=== PATIENT | female | born 1945 | race Caucasian/White ===

== ENCOUNTER 2020-05-22 07:30 | Inpatient (IN) ==
[~2020-05-22 07:30] MED LIST: Buffered Lidocaine 1% SYRIN 1 ml INTRADERM ONE; Lactated Ringers 1000 ml BAG 1,000 ML IV SCH
[2020-05-22] MEDS ORDERED: Buffered Lidocaine 1% SYRIN 1 ml INTRADERM ONE (10:24)
[2020-05-22] MEDS ORDERED: ceFAZolin 2 GM PREMIX 2 GM/50 ML BAG ONE (10:24)
[2020-05-22] MEDS ORDERED: Midazolam 2 mg/2 ml VIAL 1 mg/ml 2 ml VIAL (2 mg) ONE (11:26)
[2020-05-22] MEDS ORDERED: fentaNYL 100 mcg/2 ml 50 MCG/ML VIAL ONE ×3 (11:26→18:27)
[2020-05-22] MEDS ORDERED: ROPIVACAINE 5 MG/ML 30 ML BTL (0.5%) ONE ×2 (11:29→13:04)
[2020-05-22] MEDS ORDERED: Dexamethasone IV 4 MG/ML VIAL 1 ml VIAL ONE (11:29)
[2020-05-22] MEDS ORDERED: EPHEDrine (Pressors) 50 MG/ML VIAL ONE (14:27)
[2020-05-22] MEDS ORDERED: Phenylephrine 40 mcg/mL 10mL (400mcg) SYRINGE ONE (14:38)
[2020-05-22] MEDS ORDERED: Naloxone 0.4 mg VIAL 0.4 mg/ml 1 ml VIAL IV PRN (15:03)
[2020-05-22] MEDS ORDERED: Propofol 10 MG/ML 20 ML BTL ONE ×3 (15:33→17:18)
[2020-05-22] MEDS ORDERED: Magnesium Hydroxide LIQ 30 ML UDC PO PRN (17:54)
[2020-05-22] MEDS ORDERED: Morphine 2 MG/ML SYRINGE IV PRN (17:54)
[2020-05-22] MEDS ORDERED: Lactulose 30 ml UDC PO PRN (17:54)
[2020-05-22] MEDS ORDERED: Ondansetron ODT 4 mg TAB 4 MG TAB PO PRN (17:54)
[2020-05-22] MEDS ORDERED: diPHENhydraMINE 25 mg TAB PO PRN (17:54)
[2020-05-22] MEDS ORDERED: Ondansetron 4 mg VIAL 2 MG/ML 2 ml VIAL IV PRN (17:54)
[2020-05-22] MEDS ORDERED: diPHENhydraMINE IV 50 MG/ML 1 ml VIAL (BENADRYL) IV PRN (17:54)
[2020-05-22] MEDS ORDERED: Lactated Ringers 1000 ml BAG 1,000 ML IV SCH (18:00)
[2020-05-22] MEDS: fentaNYL 100 mcg/2 ml 50 MCG/ML VIAL IV PRN ×3 (18:27→18:49)
[2020-05-22] MEDS: oxyCODONE/Acetamin 5/325 mg TAB PO PRN (20:59)
[2020-05-22] MEDS: Magnesium Hydroxide LIQ 30 ML UDC PO SCH (21:00)
[2020-05-22] MEDS: ceFAZolin 1 GM ADVAN 1 GM in NS 0.9% 50 ML 50 ML IVPB SCH (23:14)
[2020-05-23] MEDS: oxyCODONE/Acetamin 5/325 mg TAB PO PRN ×3 (03:28→13:30)
[2020-05-23] MEDS: ceFAZolin 1 GM ADVAN 1 GM in NS 0.9% 50 ML 50 ML IVPB SCH ×2 (06:49→14:28)
[2020-05-23 07:14] LABS: Calcium 8.9 mg/dL (8.6-10.3); Potassium 4.2 mmol/L (3.5-5.0)
[2020-05-23 07:20] LABS: EGFR African American 116.7 (>60); EGFR Non-African American 96.4 (>60)
[2020-05-23] MEDS ORDERED: Vitamin THERAPEUTIC TAB PO SCH (09:00)
[2020-05-23 09:01] LABS: Hematocrit 39 % (35-47); Hemoglobin 12.9 g/dL (12.0-16.0); Mean Platelet Volume 8.5 fL (7.4-10.4); Platelet Count 171 10^3/uL (150-450)
[2020-05-23] MEDS: Magnesium Hydroxide LIQ 30 ML UDC PO SCH (10:50)
[2020-05-23 11:37] VITALS: BP 126/50
== END 2020-05-23 15:15 | disposition home health service (06) | DRG 468 ==
LOC: AA 09:40 → SSU 17:54
PROVIDERS: ADMIT Orthopaedic Surgery Adult Reconstructive Orthopaedic Surgery; ATTEND Orthopaedic Surgery Adult Reconstructive Orthopaedic Surgery